=== PATIENT | female | born 1995 | race Caucasian/White ===

== ENCOUNTER 2016-12-01 17:09 | Emergency (ER) | payer MEDICAID, OTHER ==
[~2016-12-01] VITALS: Ht 157.5 cm; Wt 60.0 kg
[2016-12-01 17:20] VITALS: Ht 157.5 cm; Wt 60.0 kg
[2016-12-01] MEDS ORDERED: IBUP-1542 PO (17:49)
--- NOTE | 2016-12-01 17:49 | ERD ---
ER Documentation Chief Complaint Date/Time DATE: 12/01/16 TIME: 17:43 Chief Complaint BIB RA FOR EVAL OF DRUG USE. USED METH THIS AM. PT A&OX4. HPI This 21-year-old female is brought in for using meth earlier in the day. Currently has please hours at bedside. She had walked across the street at a non-crosswalk. States that she was not trying to hurt herself at all. States that she no longer feels intoxicated from the methamphetamines has been working hard to try to get her kids back. She does not want to hurt herself or anyone else. Only symptom she states is that she has a stiff neck. She denies any trauma to the area and asked if we could prescribe her Motrin. ROS All systems reviewed and are negative except as per history of present illness. Medications Home Meds Reported Medications [None] No Conflict Check 11/23/09 Allergies Allergies: Coded Allergies: No Known Allergies (Verified Allergy, Mild, 11/23/09) PMhx/Soc History of Surgery: No Hx Neurological Disorder: No Hx Respiratory Disorders: No Hx Cardiac Disorders: No Hx Miscellaneous Medical Probl: No Hx Alcohol Use: No Hx Substance Use: No Hx Tobacco Use: No Smoking Status: Current every day smoker Physical Exam Vitals Vital Signs Date Time Temp Pulse Resp B/P Pulse Ox O2 Delivery O2 Flow Rate FiO2 12/01/16 17:20 98.6 101 20 113/75 99 Physical Exam Const: [] No distress Head: Atraumatic Eyes: Normal Conjunctiva, P E RL, EOMI ENT: Normal External Ears, Nose and Mouth. Neck: Full range of motion..~ No meningismus. Right-sided mild muscle spasm. Resp: Clear to auscultation bilaterally Cardio: Regular rate and rhythm, no murmurs Abd: Soft, non tender, non distended. Normal bowel sounds Skin: No petechiae or rashes Ext: No cyanosis, or edema Neur: Awake and alert and oriented 3, no slurred speech, no focal deficits, normal gait Psych: Normal Mood and Affect Procedures/MDM Female that was agitated from using methamphetamines earlier today. She is very common reasonable in the emergency room. No suicidal or homicidal ideations. We will discharge with a prescription for ibuprofen at her request. She has spoke with police and may be leaving in their custody. Clinically sober. Giving her primary care follow-up in the next 2 or 3 days and written instructions on how to deal with methamphetamine use and abuse. Departure Diagnosis: Primary Impression: Methamphetamine use Additional Impression: Neck muscle spasm Condition: Stable Patient Instructions: Understanding Methamphetamine Abuse and Addiction Additional Instructions: Call your primary care doctor TOMORROW for an appointment during the next 2-3 days.See the doctor sooner or return here if your condition worsens before your appointment time. IQRA STILL DO December 01, 2016 17:48
[2016-12-01 17:50] VITALS: BP 129/68; PULSE 93; RESP 18; TEMP 98.6
[2016-12-01] MEDS ORDERED: IBUPROFEN 600 MG TAB PO ONE (18:00)
== END 2016-12-01 17:50 | disposition home or self-care (01) ==
LOC: E/R 17:09
DX: F15.90 Other stimulant use, unspecified, uncomplicated (principal); M62.838 Other muscle spasm; F17.210 Nicotine dependence, cigarettes, uncomplicated
CPT/HCPCS: Z7502; Z7610; 99283